=== PATIENT | male | born 1980 | race Caucasian/White ===

== ENCOUNTER 2023-03-21 10:15 | Outpatient (OUT) | payer OTHER, SELFPAY ==
[2023-03-21 11:09] LABS: Alanine Aminotransferase 49 U/L (16-63); Albumin Level 3.8 g/dL (3.4-5.0); Alkaline Phosphatase 97 U/L (46-116); Aspartate Amino Transferase 14 U/L (15-37); BUN Creatinine Ratio 10.1; Bilirubin Total 0.3 mg/dL (0.2-1.0); Calcium 8.7 mg/dL (8.5-10.1); Carbon Dioxide 30.7 mmol/L (21.0-32.0); Chloride 105 mmol/L (98-107); Chol HDL Ratio 4.9; Cholesterol 193 mg/dL (<=200); Estimated GFR (African America >60 (>=60); Estimated GFR (Non-African Ame >60 (>=60); Free T4 1.06 ng/dL (0.76-1.46); Globulin 3.8 g/dL; Glucose 132 mg/dL (74-106); HDL Cholesterol 39 mg/dL (40-60); Potassium 3.7 mmol/L (3.5-5.1); Sodium 142 mmol/L (136-145); Thyroid Stimulating Hormone 1.492 uIU/mL (0.358-3.740); Total Protein 7.6 g/dL (6.4-8.2); Triglycerides 400 mg/dL (<=150)
[2023-03-21 12:03] LABS: LDL Cholesterol Direct 74 mg/dL
== END 2023-03-21 10:16 ==
LOC: LAB 10:21
PROVIDERS: PCP Family Medicine; Visit Provider Family Medicine
DX: I10 Essential (primary) hypertension (principal); E03.9 Hypothyroidism, unspecified; E78.2 Mixed hyperlipidemia
CPT/HCPCS: 36415; 80053; 80061; 83721; 84439; 84443

== ENCOUNTER 2024-01-10 11:53 | Outpatient (OUT) | payer OTHER, SELFPAY ==
[2024-01-10 13:33] LABS: Alanine Aminotransferase 40 U/L (16-63); Albumin Globulin Ratio 1.1; Albumin Level 3.6 g/dL (3.4-5.0); Alkaline Phosphatase 104 U/L (46-116); Anion Gap 11.3; Aspartate Amino Transferase 19 U/L (15-37); BUN Creatinine Ratio 10.3; Bilirubin Total 0.4 mg/dL (0.2-1.0); Calcium 8.9 mg/dL (8.5-10.1); Carbon Dioxide 32.4 mmol/L (21.0-32.0); Chloride 103 mmol/L (98-107); Chol HDL Ratio 4.3; Cholesterol 184 mg/dL (<=200); Estimated GFR (African America >60 (>=60); Estimated GFR (Non-African Ame >60 (>=60); Globulin 3.4 g/dL; Glucose 135 mg/dL (74-106); HDL Cholesterol 43 mg/dL (40-60); Potassium 3.7 mmol/L (3.5-5.1); Sodium 143 mmol/L (136-145); Thyroid Stimulating Hormone 6.635 uIU/mL (0.358-3.740); Triglycerides 321 mg/dL (<=150); VLDL CHOLESTEROL 64.2 mg/dL
[2024-01-10 14:55] LABS: Free T4 0.94 ng/dL (0.76-1.46)
== END 2024-01-10 11:54 | disposition home or self-care (01) ==
LOC: LAB 11:55
PROVIDERS: PCP Family Medicine; Visit Provider Family Medicine
DX: E78.2 Mixed hyperlipidemia (principal); E03.9 Hypothyroidism, unspecified; I10 Essential (primary) hypertension
CPT/HCPCS: 36415; 80053; 80061; 84439; 84443

== ENCOUNTER 2024-03-19 11:13 | Outpatient (OUT) | payer OTHER, SELFPAY ==
--- NOTE | 2024-03-19 11:20 | XR_ITS ---
The [address] [address] Patient Name: AFUA BHAGAT MRN: [id number] date: 1980 Sex: M Assigned Patient Location: RAD Current Patient Location: RAD Accession/Order Number: [id number] Exam Date: 03/19/2024 11:24 Report Date: 03/19/2024 11:48 At the request of: SANTANA GANNON Procedure: XR ankle LT min 3V PROCEDURE: XR ankle LT min 3V COMPARISON: None. HISTORY: Left Ankle Pain M25.572 FINDINGS: BONES:No fracture, acute abnormality, or significant arthropathy. SOFT TISSUES:Bimalleolar soft tissue swelling more significant in the medial ankle EFFUSION:None visible. OTHER: Negative. XR/XR ankle LT min 3V IMPRESSION: Soft tissue swelling, no acute fracture Electronically authenticated by: DANGELO SALDIVAR Date: 03/19/2024 11:48
== END 2024-03-19 11:14 | disposition home or self-care (01) ==
LOC: RAD 11:15
PROVIDERS: PCP Nurse Practitioner; Visit Provider Nurse Practitioner
DX: M25.572 Pain in left ankle and joints of left foot (principal); M25.472 Effusion, left ankle
CPT/HCPCS: 73610

== ENCOUNTER 2024-03-20 14:57 | Outpatient (RCR) | payer OTHER, SELFPAY | END 2024-04-19 12:35 | disposition home or self-care (01) | LOC: PT 14:57 | PROVIDERS: PCP Nurse Practitioner; Visit Provider Nurse Practitioner | DX: M25.572 Pain in left ankle and joints of left foot (principal) | CPT/HCPCS: 97014; 97035; 97110; 97112; 97140; 97161 ==

== ENCOUNTER 2024-05-01 10:10 | Outpatient (OUT) | payer OTHER, SELFPAY ==
--- OUTSIDE RECORDS SUMMARY | 2024-05-01 10:13 | XMS_ITS | CCD ---
Author Organization [facility] Care Team Providers Care Advertising Copywriter Name Role Phone ESTHER, DR ARTIS Admitting Unavailable MISAnna, DR ARTIS Attending Unavailable MISC, DR ARTIS Consulting Unavailable Fernando Saab Unavailable DO Daphne Drake Primary Care Provider MD Patrick Morgan Attending Provider Patrick Morgan Unavailable Patrick Morgan Attending Unavailable Patrick Morgan Admitting Unavailable Daphne Drake Primary Care Unavailable JOSIE VILLELA Attending Unavailable Unavailable Primary Care Provider Unavailabl e Medications Current Medications Medication Drug Class(es) Dates Sig (Normalized) Sig (Original) amLODIPine 5 mg oral tablet (7 sources) Dihydropyridine Calcium Channel Jarvis Start: 09-29-2023 take 5 mg by mouth once daily Amlodipine Active 5 MG PO Daily September 29, 2023 12:00am amLODIPine (Norv asc) 2.5 MG tablet Take by mouth Daily. 0 Active Desoximetasone (3 sources) Corticosteroid Desoximetasone ( TOPICORT EX) Topicort 0 Active ketoconazole 20 mg/ml topical cream (7 sources) Azole Antifungal Start: 11-16-2023 ketoconazole (NIZOral) 2 % shampoo Indications: Other seborrheic dermatitis Lather on scalp and face 2-3 times weekly, leave on 5-10 min before rinsing 118 mL 11 11/16/2023 Active Start: 11-16-2023 ketoconazole ( NIZOral) 2 % cream Indications: Other seborrheic dermatitis Apply to affected areas on face qd 60 g 11 11/16/2023 Active Start: 03-17-2022 End: 11-16-2023 ketoconazole (NIZOral) 2 % c ream 1 application. 0 03/17/2022 11/16/2023 Discontinued (Reorder) lansoprazole 30 mg delayed release oral capsule (4 sources) Proton Pump Inhibitor Start: 09-29-2023 take 30 mg by mouth twice daily Lansoprazole Active 30 MG PO Twice daily September 29, 2023 12:00am Lansoprazole 30 MG 1 capsule before a meal Oral 1-2 times a day for 90 days Active levothyroxine sodium 0.1 mg oral tablet (7 sources) l-Thyroxine Start: 09-29-2023 take 100 ug by mouth once daily Levothyroxine Active 100 MCG PO Daily September 29, 2023 12:00am LEVOTHYROXINE SO DIUM PO Levothyroxine Sodium 0 Active Levothyroxine So dium 100 MCG Oral for 90 Days Active loratadine 10 mg oral tablet (4 sources) Start: 09-29-2023 take 10 mg by mouth at bedtime Loratadine Active 10 MG PO Bedtime September 29, 2023 12:00am Loratadine 10 MG Oral for 90 Days Active 24 hr metoprolol succinate 25 mg extended release oral tablet (7 sources) beta-Adrenergic Jarvis Start: 09-29-2023 take 25 mg by mouth once daily Metoprolol Succinate Active 25 MG PO Daily September 29, 2023 12:00am take 1 tablet by hubert th every twenty-four hours metoprolol succinate XL (Toprol-XL) 25 M G 24 hr tablet Take by mouth. Do not crush or chew. 0 Active montelukast 10 mg oral tablet (4 sources) Leukotriene Receptor Antagonist Start: 09-29-2023 take 10 mg by mouth at bedtime Montelukast Active 10 MG PO Bedtime September 29, 2023 12:00am rosuvastatin calcium 40 mg oral tablet (7 sources) HMG-CoA Reductase Inhibitor Start: 09-29-2023 take 40 mg by mouth at bedtime Rosuvastatin Active 40 MG PO Bedtime September 29, 2023 12:00am ROSUVASTATIN MERCEDES CIUM PO Rosuvastatin Calcium 0 Active Problems Active Problems Problem Classification Problem Date Documented Da te Episodic/Chronic Disorders of lipid metabolism (1 source) Mixed hyperlipidemia; Translations: [MIXED HYPERLIPIDEMIA] Onset: 2 Chronic Esophageal disorders (5 sources) Gastroesophageal reflux disease; Translations: [Gastro-esophageal reflux disease without esophagitis] Chronic Essential hypertension (1 source) Essential (primary) hypertension; Translations: [ESSENTIAL PRIMARY HYPERTENSION] Onset: 2 Chronic Hemorrhoids (1 source) Unspecified hemorrhoids Episodic Other and unspecified benign neoplasm (1 source) Benign neoplasm of colon, unspecified Episodic Other gastrointestinal disorders (2 sources) Diarrhea, unspecified Episodic Other inflammatory condition of skin (2 sources) Seborrheic dermatitis; Translations: [Other seborrheic dermatitis] 11-16-2023 Episodic Other skin disorders (2 sources) Eruption; Translations: [Rash and other nonspecific skin eruption] 11-16-2023 Episodic Other skin disorders (2 sources) Senile hemangioma of lip; Translations: [Other skin changes] 11-16-2023 Episodic Thyroid disorders (4 sources) Hypothyroidism, unspecified; Translations: [HYPOTHYROIDISM UNSPECIFIED] Onset: 2 Chronic Unclassified (1 source) Diarrhea, unspecified; Translations: [Diarrhea, unspecified] Onset: 3 Past or Other Problems Problem Classification Problem Date Documented Da te Episodic/Chronic Other non-epithelial cancer of skin (3 sources) Basal cell carcinoma of nose; Translations: [Basal cell carcinoma of skin of nose] Onset: 03-15-2023 03-15-2023 Episodic Results Test Name Value Interpretation Reference Range Facil eleanory Clive 09-29-2023 L Specimen: [id number] Received: 09/29/23 Status: SHAYY Catalan Num: [id number] Spec Type: Surgical Subm Dr: Patrick Morgan MD Tissues: A Colon Biopsy (RANDOM COLON BX) B Colon Biopsy (DESC POLYP) Procedures: HE/4, Gross/Micro L4/2 Age/ Patient Sex Location Account Attending Physician Jan Ferreira /M [id number] Patrick Morgan MD SPEC NUM: [id number] RECD: 09/29/23 STATUS: SHAYY CATALAN NUM: [id number] JOANNA: 09/29/23- [facility] DR: Patrick Morgan MD ENTERED: 09/29/[address] [facility] [address]: JOANIE TYPE: Surgical DEPT: S ORDERED: HE/4, Gross/Micro L4/2 ORDERED: HE/4, Gross/Micro L4/2 Pathological Diagnosis A. Colon, Random Biopsies: Mild Increase In Intra-epithelial Lymphocytes. Cannot Rule Out Evolving/ Resolving Microscopic (lymphocytic) Colitis. B. Polyp, Descending Colon, Biopsy: Serrated Adenoma. - Negative For High Grade Dysplasia And Malignancy. Clinical Information Diarrhea, rule out microscopic colitis Gross Description A. Received in formalin labeled with the patient's name, date of and random colon biopsy are three smith tissues averaging 0.4 x 0.2 x 0.2 cm. Entirely submitted in one cassette labeled A1. B. Received in formalin labeled with the patient's name, date of and descending polyp are three smith tissues ranging from 0.2 cm to 0.3 cm. Entirely submitted in one cassette labeled B1. Specimen: [id number] Received: 09/29/23 Status: SHAYY Catalan Num: [id number] Spec Type: Surgical Subm Dr: Patrick Morgan MD Tissues: A Colon Biopsy (RANDOM COLON BX) B Colon Biopsy (DESC POLYP) Procedures: HE/Latonya, Gross/Micro L4/2 Patient: Jan Ferreira [id number] (Continued) Specimen: [id number] Received: 09/29/23 (Continued) Signed (signature on file) Heladio Mulligan MD 10/03/23 2237 Specimen: [id number] Received: 09/29/23 Status: SHAYY Catalan Num: [id number] Spec Type: Surgical Subm Dr: Patrick Morgan MD Tissues: A Colon Biopsy (RANDOM COLON BX) B Colon Biopsy (DESC POLYP) Procedures: HE/4, Gross/Micro L4/2 Patient: Jan Ferreira [id number] (Continued) Specimen: [id number] Received: 09/29/23 (Continued) Microscopic Description A. Two H E slides reviewed. The microscopic examination confirms the diagnosis. B. Two H E slides reviewed. The microscopic examination confirms the diagnosis. CPT Codes 33369k3 Specimen: [id number] Received: 09/29/23-3 Status: SHAYY Catalan Num: [id number] Spec Type: Surgical Subm Dr: Patrick Morgan MD Tissues: A Colon Biopsy (RANDOM COLON BX) B Colon Biopsy (DESC POLYP) Procedures: HE/4, Gross/Micro L4/2 Patient: Jan Ferreira [id number] (Continued) Signed (signature on file) Heladio Mulligan MD 10/03/232236 Normal [facility] FREE T4on 09-06-2022 Free T4 [Mass/Vol] 1.17 ng/dL Normal 0.76-1.46 [facility] Comment on above: Performed By: #### F T4 #### [facility] [address] [place] [address] Dr. Marco A Hidalgo LIPID PROFILEon 09-06-2022 CHOL-HDL RATIO NORM SEE BELOW Normal [facility] Comment on above: Result Comment: 3.3 - 4.4 LOW RISK 4.4 - 7.1 AVERAGE RISK 7.1 - 11.0 MODERATE RISK >11.0 HIGH RISK Performed By: #### T SH, LIPID, CMP #### [facility] [address] [address] [address] Marco A Hidalgo Cholesterol [Mass/Vol] 171 mg/dL Normal <=200 [facility] Comment on above: Performed By: #### T SH, LIPID, CMP #### [facility] [address] [address] [address] Marco A Hidalgo Cholesterol in HDL [Mass/Vol] 48 mg/dL Normal 40-60 [facility] Comment on above: Performed By: #### T CIRA, LIPID, CMP #### [facility] [address] [address] [address] Marco A Hidalgo Cholesterol in LDL [Mass/Vol] 96.2 mg/dL Normal [facility] Comment on above: Performed By: #### T CIRA, LIPID, CMP #### [facility] [address] [address] [address] Marco A Hidalgo Cholesterol.total/C holesterol in HDL [Mass ratio] 3.6 {ratio} Normal [facility] Comment on above: Performed By: #### T CIRA, LIPID, CMP #### [facility] [address] [place] [address] Dr. Marco A Hidalgo HDL NORMAL > or = 60 mg/dl - LOW CARDIOVASCULAR RISK <40 mg/dl - HIGH CARDIOVASCULAR RISK Normal [facility] Comment on above: Performed By: #### T CIRA, LIPID, CMP #### [facility] [address] [place] [address] Dr. Marco A Hidalgo LDL CALC NORMAL SEE BELOW Normal [facility] Comment on above: Result Comment: <100 mg/dl OPTIMAL 100 - 129 mg/dl NEAR OR ABOVE OPTIMAL 130 - 159 mg/dl BORDERLINE HIGH 160 - 189 mg/dl HIGH >190 mg/dl VERY HIGH Performed By: #### T SH, LIPID, CMP #### [facility] [address] [address] [address] Marco A Hidalgo Triglyceride [Mass/Vol] 134 mg/dL Normal <=150 [facility] Comment on above: Performed By: #### T SH, LIPID, CMP #### [facility] [address] [address] [address] Marco A Hidalgo VLDL CALC 26.8 mg/dL Normal [facility] Comment on above: Performed By: #### T SH, LIPID, CMP #### [facility] [address] [address] [address] Marco A Hidalgo PROF 14(COMP METB)on 022 Albumin [Mass/Vol] 4.1 g/dL Normal 3.4-5.0 [facility] Comment on above: Performed By: #### T CIRA, LIPID, CMP #### [facility] [address] [place] [address] Dr. Marco A Hidalgo Albumin/Globulin [Mass ratio] 1.1 {ratio} Normal [facility] Comment on above: Performed By: #### T CIRA, LIPID, CMP #### [facility] [address] [place] [address] Dr. Marco A Hidalgo ALP [Catalytic activity/Vol] 89 U/L Normal 46-116 [facility] Comment on above: Performed By: #### T SH, LIPID, CMP #### [facility] [address] [place] [address] Dr. Marco A Hidalgo ALT [Catalytic activity/Vol] 36 U/L Normal 16-63 [facility] Comment on above: Performed By: #### T CIRA, LIPID, CMP #### [facility] [address] [address] [address] Marco A Hidalgo Anion gap [Moles/Vol] 10.5 mmol/L Normal [facility] Comment on above: Performed By: #### T SH, LIPID, CMP #### [facility] [address] [place] [address] Dr. Marco A Hidalgo AST [Catalytic activity/Vol] 16 U/L Normal 15-37 [facility] Comment on above: Performed By: #### T SH, LIPID, CMP #### [facility] [address] [place] [address] Dr. Marco A Hidalgo Bilirubin [Mass/Vol] 0.4 mg/dL Normal 0.2-1.0 [facility] Comment on above: Performed By: #### T SH, LIPID, CMP #### [facility] [address] [place] [address] Dr. Marco A Hidalgo Calcium [Mass/Vol] 8.8 mg/dL Normal 8.5-10.1 [facility] Comment on above: Performed By: #### T SH, LIPID, CMP #### [facility] [address] [place] [address] Dr. Marco A Hidalgo Chloride [Moles/Vol] 103 mmol/L Normal 98-107 [facility] Comment on above: Performed By: #### T SH, LIPID, CMP #### [facility] [address] [place] [address] Dr. Marco A Hidalgo CO2 [Moles/Vol] 31.4 mmol/L Normal 21.0-32.0 [facility] Comment on above: Performed By: #### T SH, LIPID, CMP #### [facility] [address] [place] [address] Dr. Marco A Hidalgo Creatinine [Mass/Vol] 0.83 mg/dL Normal 0.70-1.30 [facility] Comment on above: Performed By: #### T SH, LIPID, CMP #### [facility] [address] [place] [address] Dr. Marco A Hidalgo EGFR-AF TONGAN >60 Normal >=60 [facility] Comment on above: Performed By: #### T SH, LIPID, CMP #### [facility] [address] [place] [address] Dr. Marco A Hidalgo EGFR-NON AF TONGAN >60 Normal >=60 [facility] Comment on above: Performed By: #### T SH, LIPID, CMP #### [facility] [address] [place] [address] Dr. Marco A Hidalgo Globulin (S) [Mass/Vol] 3.6 g/dL Normal [facility] Comment on above: Performed By: #### T SH, LIPID, CMP #### [facility] [address] [place] [address] Dr. Marco A Hidalgo Glucose [Mass/Vol] 111 mg/dL Critically high 74-106 [facility] Comment on above: Performed By: #### T CIRA LIPID, CMP #### [facility] [address] [address] [address] Marco A Hidalgo Potassium [Moles/Vol] 3.9 mmol/L Normal 3.5-5.1 [facility] Comment on above: Performed By: #### T CIRA LIPID, CMP #### [facility] [address] [place] [address] Dr. Marco A Hidalgo Protein [Mass/Vol] 7.7 g/dL Normal 6.4-8.2 [facility] Comment on above: Performed By: #### T CIRA LIPID, CMP #### [facility] [address] [place] [address] Dr. Marco A Hidalgo Sodium [Moles/Vol] 141 mmol/L Normal 136-145 [facility] Comment on above: Performed By: #### T CIRA LIPID, CMP #### [facility] [address] [place] [address] Dr. Marco A Hidalgo Urea nitrogen [Mass/Vol] 7.0 mg/dL Normal 7.0-18.0 [facility] Comment on above: Performed By: #### T CIRA LIPID, CMP #### [facility] [address] [place] [address] Dr. Marco A Hidalgo Urea nitrogen/Creatinine [Mass ratio] 8.4 mg/mg Normal [facility] Comment on above: Performed By: #### T CIRA LIPID, CMP #### [facility] [address] [place] [address] Dr. Marco A Hidalgo TSHon 09-06-2022 TSH 2.730 uIU/mL Normal 0.358-3.740 [facility] Comment on above: Performed By: #### T CIRA LIPID, CMP #### [facility] [address] [place] [address] Dr. Marco A Hidalgo Vital Signs Date Time Vital Sign Value Performing Clinician Facility 10-31-2023 09:20-0500 Body height 182.88 cm Fernando Saab Other [employer] Other 10-31-2023 09:20-0500 Body mass index (BMI) [Ratio] 26.31 kg/m2 Fernando Scovanner Other [employer] Other 10-31-2023 09:20-0500 Body weight 88 kg Fernando Saab Other [employer] Other 10-31-2023 09:20-0500 Diastolic blood pressure 77 mm[Hg] Fernando Scovanner Other [employer] Other 10-31-2023 09:20-0500 Systolic blood pressure 112 mm[Hg] Fernando Garcíaovanner Other [facility] Other 09-29-2023 12:00-0500 Diastolic blood pressure 91 mm[Hg] DO Daphne Rumschlag Work Phone: [facility] 09-29-2023 12:00-0500 Heart rate 90 /min DO Daphne Rumschlag Work Phone: [facility] 09-29-2023 12:00-0500 Respiratory rate 18 /min DO Daphne Rumschlag Work Phone: [facility] 09-29-2023 12:00-0500 SaO2% (BldA) [Mass fraction] 98 % DO Daphne Rumschlag Work Phone: [facility] 09-29-2023 12:00-0500 Systolic blood pressure 133 mm[Hg] DO Daphne Rumschlag Work Phone: [facility] 09-29-2023 10:20-0500 Body height 182.88 cm DO Daphne Rumschlag Work Phone: [facility] 09-29-2023 10:20-0500 Body weight 86.18 kg DO Daphne Drake Work Phone: [facility] 08-23-2023 13:20-0500 Body height 182.88 cm Fernando Saab Other [employer] Other 08-23-2023 13:20-0500 Body mass index (BMI) [Ratio] 21.21 kg/m2 Fernando Saab Other [employer] Other 08-23-2023 13:20-0500 Body weight 70.94 kg Fernando Saab Other [employer] Other 08-23-2023 13:20-0500 Diastolic blood pressure 75 mm[Hg] Fernando Saab Other [employer] Other 08-23-2023 13:20-0500 Systolic blood pressure 132 mm[Hg] Fernando Saab Other [employer] Other Encounters Encounter Date Encounter Type Care Provider Facility Start: 11-16-2023 End: 11-16-2023 ambulatory JOSIE VILLELA Not Available Start: 11-16-2023 End: 11-16-2023 Office outpatient visit 15 minutes Josie Villela MD Work Phone: [facility] Comment on above: Other seborrheic huan matitis (Primary Dx); Rash and other nonspecific skin eruption; Venous yoo of lip Start: 11-16-2023 Bamboo flowsheet Josie valera MD Work Phone: [facility] Start: 11-16-2023 Bamboo flowsheet Josie valera MD Work Phone: [facility] Start: 10-31-2023 End: 10-31-2023 ambulatory Fernando Saab Other [employer] Other Start: 10-31-2023 Office outpatient visit 15 minutes Fernando Saab [facility] Start: 10-03-2023 End: 10-03-2023 ambulatory Patrick Morgan Other [employer] Other Start: 10-03-2023 Telephone encounter Patrick NIÑO G Gastro[facility] Start: 09-29-2023 End: 09-29-2023 ambulatory Patrick Morgan Facility:[facility] Start: 09-29-2023 End: 09-29-2023 Admission to same day surgery center DO Daphne Rumschlag Work Phone: [facility] Work Phone: Start: 09-29-2023 End: 09-29-2023 ambulatory DO Daphne Rumschlag Work Phone: [facility] Work Phone: Start: 08-23-2023 End: 08-23-2023 ambulatory Fernando Saab Other [facility] Other Start: 08-23-2023 Office outpatient ne w 30 minutes Fernando Saab [facility] Start: 09-06-2022 End: 09-07-[address] DOCTOR SANTANA Facility:[facility]1 Procedures Date Procedure Procedure Detail Performing Clinician Start: 09-29-2023 End: 09-29-2023 Colonoscopy DO Daphne Rumschlag Work Phone: Plan of Treatment Date Care Activity Detail Author Start: 09-29-2033 Screening for malign ant neoplasm of colon [facility] Start: 11-18-2024 End: 11-18-2024 Patient encounter procedure 11/18/2024 1:45 PM EST Office Visit [facility] [address] [place] [address] Josie Villela MD [address] [place] [address] [facility] Start: 03-18-2024 End: 03-18-2024 Patient encounter procedure 03/18/2024 1:00 PM EDT Office Visit [facility] [address] [place] [address] Josie Villela MD [address] [place] [address] [facility] Start: 11-16-2023 End: 11-16-2023 Patient encounter procedure 11/16/2023 2:45 PM EST Office Visit [facility] [address] [place] [address] Josie Villela MD [address] [place], [place] [id number] Arrived [facility] Comment on above: Arrived Start: 09-29-2023 [facility] Start: 06-09-2023 Influenza vaccination Influenza Vacc ine (#1) [facility] Start: 1980 Screening for malign ant neoplasm of colon [facility] Patient Education Colon polyps Hemorrhoids (DC) [facility] Work Phone: Payers Date Payer Category Payer Self-pay [id number] 2022 Medicaid [id number] 2022 Medicaid [employer] [id number] 2022-Present [address] [place] [address] [id number] 1980 Unknown [id number] 1978 Unknown [id number] 1959 Unknown Unknown [id number] Social History Date Type Detail Facility Start: 03-16-2023 End: 11-16-2023 Sex Assigned At [employer] Other Start: 03-16-2023 End: 09-29-2023 Tobacco smoking status NHIS Never smoked tobacco (finding) [facility] Start: 1980 Sex Assigned At Male [facility] Start: 03-16-2023 Tobacco use and exposure Smokeless tobacco non-user [facility] Start: 03-16-2023 End: 11-16-2023 History of Social function [facility] Start: 03-09-2023 Gender identity Identifies as male gender (finding) [facility] Start: 03-09-2023 Sexual orientation Heterosexual (finding) [facility] Goals Date Patient Goal Desired Activity /State History of Present illness Narrative 11-16-2023 Josie Villela MD - 11/16/2023 2:45 PM EST Note Date & Type Note Facility 11-16-2023 History of Presen t illness Narrative Lesion(s) Location: left arm Duration: months Quality: itchy Associated symptoms: red Treatments: ketoconazole cream Lesion # 2: Location: left lower lip, right chin Duration: months Quality: denies pain, denies itch Associated symptoms: darkening Treatments: none Rash Location: left lower leg Duration: couple weeks Quality: itchy Associated symptoms: red, scaly Current treatments: HC cream Follow up Diagnosis: Seborrheic Dermatitis Location: face Last visit: 6 months ago Symptoms: red, scaly, itchy Status: no change Treatments tried and failed: HC cream Current treatment: ketoconazole shampoo every day, ketoconazole cream qd Established patient All pertinent medical history, medications, and allergies were reviewed. General Exam: alert , oriented to person, place, and time , normal affect, well appearing Unaccompanied A focused exam completed based on patient reported problems, see below: 1. Rash and other nonspecific skin eruption Left Ankle - Anterior [place] patches. Resolving at this time. Follow up if condition worsens or fails to resolve. Can continue to use OTC hydrocortisone bid prn until clear. 2. Venous yoo of lip Left Lower [place] Lip Red papule No treatment necessary. Recommend seeing Dr. Colón for laser if desires removal. 3. Other seborrheic dermatitis Mid Forehead Erythema and scale. Stable Discussed that seborrheic dermatitis is a chronic condition that can be controlled but not cured. Continue ketoconazole shampoo 2-3 times weekly, leave on 5-10 min, then rinse and ketoconazole cream every day. Instructed to call if condition worsens despite treatment. ketoconazole (NIZOral) 2 % shampoo - Mid Forehead Lather on scalp and face 2-3 times weekly, leave on 5-10 min before rinsing Related Medications ketoconazole (NIZOral) 2 % cream Apply to affected areas on face qd Next Visit: 1 year documented in this encounter [facility] Evaluation note 10-31-2023 Note Date & Type Note Facility 10-31-2023 Evaluation note Encounter Date Diagnosis Assessment Notes Oct, Hemorrhoids (ICD-10 - K64.9) Oct, Serrated adenoma of colon (ICD-10 - D12.6) Repeat colonoscopy in 3 yrs Oct, Diarrhea (ICD-10 - R19.7) Oct, GERD (gastroesophag eal reflux disease) (ICD-10 - K21.9) Continue lansoprazole 30 mg twice a day Rto 1 yr [employer] Other Procedure note 09-29-2023 Note Date & Type Note Facility 09-29-2023 Procedure note [facility] Evaluation note 08-23-2023 Note Date & Type Note Facility 08-23-2023 Evaluation note Encounter Date Diagnosis Assessment Notes Aug, GERD (gastroesoph ageal reflux disease) (ICD-10 - K21.9) Patient reports that he wakes in the morning chocking on vomit Patient is currently on prevised 30 mg Patient reports that he will have improvement if his diet is good Patient reports that his PCP placed him on the Mediterranean diet and exercise that he is not following Aug, Diarrhea (ICD-10 - R19.7) Patient reports that he has a very poor diet of pop and fast food Patient reports that he has had some stool that was green Patient reports that he has intermittent diarrhea and constipation Patient reports that he has bowel movements according to his meals Patient is advised to start OTC fiber and probiotics and increas water intake [facility] [employer] Other Evaluation note Note Date & Type Note Facility Evaluation note No assessment information availa vipul [facility] Work Phone: Evaluation note Note Date & Type Note Facility Evaluation note No Information [facility] [employer] Other Evaluation note Note Date & Type Note Facility Evaluation note Diagnosis Other seborrheic dermatitis- Primary Rash and other nonspecific skin eruption Venous yoo of lip documented in this encounter [facility] History and physical note Note Date & Type Note Facility History and physical note Note Date/Time September 29, 2023 11:27am [facility] [address] [place] [address] Gastroenterology H&P Signed Patient: Jan Ferreira MR#: [id number] : 1980 Acct:[id number] Age/Sex: 42 / M Adm Date: 3 Loc: Room: Type: [facility] Attending Dr: Patrick Morgan MD Copies to: DO Patrick May MD~ Date of Service: 09/29/2023 HISTORY & PHYSICAL: Patient's history with special attention to the cardiovascular, pulmonary systems and the current problem was reviewed with the patient immediately prior to the procedure. Present medications and doses reviewed in the EMR. Allergies and pertinent laboratory tests were also reviewedat this time in the EMR. The physical examination, as below, was then performed. Indication, assessment and HPI: 42-year-old male presents for colonoscopy to evaluate change in bowel habits with diarrhea. Family history of GI malignancy? No PHYSICAL EXAMINATION Mouth and Pharynx : Moist mucus membranes, normal dentition Cardiac: Regular rate, regular rhythm Pulmonary: Clear to auscultation bilaterally, no wheezing Neurological: Alert and oriented x3, no focal deficits noted Abdomen: Abdomen soft, non-tender REVIEW OF SYSTEMS Constitutional: Denies malaise, fevers Cardiovascular: Denies chest pain, palpitations Respiratory: Denies shortness of breath, wheezing Gastrointestinal: Per HPI Genitourinary: Denies dysuria, polyuria Musculoskeletal: Denies joint swelling, joint stiffness Neurological: Denies numbness, tingling Integumentary: Denies rashes, skin lesions Endocrine: Denies fatigue, weight loss Written informed consent obtained from the patient. Risks (including but not limited to perforation, infection, bloating, bleeding, need for emergent surgery and loss of life), benefits and alternatives explained and questions answered. The patient verbalized understanding. Based on history patient is an appropriate candidate for the procedure. Patrick Morgan MD Documented By: Patrick Morgan MD 09/29/231126 Signed By: <Electronically signed by Patrick Morgan MD> 09/29/23 1127 [facility] Work Phone: History general Narrative - Reported Note Date & Type Note Facility History general Narrative - Reported Type Medical History high blood pressure Medical History high cholesterol Medical History seasonal allergies Medical History thyroid disease Surgical History MOHS X2 [employer] Other Hospital Discharge instructions Note Date & Type Note Facility Hospital Discharge instructions Additional Instructions DISCHARGE INSTRUCTIONS FOR COLONOSCOPY WHAT TO EXPECT: - You may feel full, gassy or cramping after your procedure. In some cases, this may be from a few hours to a day. Walking may help relieve the discomfort. - If you have polyp(s) removed you may note some minor bloody discharge after your first bowel movements. - You should begin to recover from anesthesia within 1 hour of the procedure, however may feel groggy for the next 24 hours. DO's AND DON'Ts: - Call your doctor right away if you have a hard abdomen, severe pain, are passing lots of bright red blood or clots. - Call your doctor if you develop any rashes, hives or difficulty breathing. - Let your doctor know if you have not had a bowel movement by 3 days after your procedure. - If you take 81 mg aspirin for your heart it is safe to resume this medication. - If you take other blood thinner medications your doctor will instruct you when these can safely be resumed. - Do NOT drive for 24 hours. - Do NOT operate machinery such as power tools, lawn mowers, snow blowers, sewing machines, etc. for 24 hours. - Avoid alcoholic beverages and drugs for allergies, nerves, or sleep. - Do NOT stay alone. Do NOT leave your child unattended. - Do NOT make important personal or business decisions or sign any legal documents. - Eat solid foods and drink liquids in smaller amounts than usual until normal appetite returns. If you should experience an upset stomach, liquids high in sugar content (soda, Gareth-Aid, non-acid juices) are recommended. - You can resume normal activities tomorrow. FOLLOW UP & RECOMMENDATIONS: -The GI office will schedule you a follow-up appointment. -Notify the doctor if you have any problems. -Repeat colonoscopy in 5 years. -Follow up with PCP. -Office number [phone]. [facility] Work Phone: Summary Purpose Family History Relationship Condition Age at Onset Recorded Date/T bubba father Malignant neoplasm of lung Unknown grandparent Malignant neoplasm of lung Unknown Not Specified Dementia Unknown grandparent Cerebrovascular accident (CVA) Unknown Advance Directives Advance Directive Response Recorded Date/ Time Advance Directives No May 20, 2020 4:17pm Chief Complaint and Reason for Visit Chief Complaint diahrrea Additional Source Comments (unrecognized sect ion and content) No Status Records FoundNo Status Records FoundNo Status Records Found INFORMATION SOURCE (unrecogn ized section and content) DATE CREATED AUTHOR 10/05/2022 [facility] DATE CREATED AUTHOR AUTHOR'S ORGANIZ ATION 10/14/2023 [facility] DATE CREATED AUTHOR AUTHOR'S ORGANIZ ATION 11/17/2023 [facility] EPIC REASON FOR VISIT (unrecogniz ed section and content) Reason Comments Suspicious Skin Lesion Rash Care Teams (unrecognized sec tion and content) Team Status: Active Member Role Status Dates Daphne Drake DO Primary Care Provider Active Team Status: Inactive Member Role Status Dates Daphne Drake DO Primary Care Provider Active Patrick Morgan MD Attending Provider Active FOR RECORDS PERTAINING TO PATIENTS WHO ARE OR HAVE BEEN ENROLLED IN A CHEMICAL DEPENDENCY/SUBSTANCEABUSE PROGRAM, SOME INFORMATION MAY BE OMITTED. This clinical summary was aggregated from multiple sources. Caution should be exercised in using it in the provision of clinical care. This summary normalizes information from multiple sources, and as a consequence, information in this document may materially change the coding, format and clinical context of patient data. In addition, data may be omitted in some cases. CLINICAL DECISIONS SHOULD BE BASED ON THE PRIMARY CLINICAL RECORDS. [facility] [employer] [facility]. provides no warranty or guarantee of the accuracy or completeness of information in this document.
[2024-05-01 10:52] LABS: Glucometer 139 mg/dL (74-106)
[2024-05-01 11:23] LABS: Basophils Percent Auto 0.4 % (0.2-2.0); Eosinophils Absolute Auto 0.1 10^3/uL (0.0-0.7); Eosinophils Percent Auto 1.4 % (0.9-7.0); Hematocrit 42.4 % (42.0-54.0); Hemoglobin 13.9 g/dL (14.0-18.0); Immature Granulocytes Abs Auto 0.02 10^3/uL (0.00-0.03); Immature Granulocytes Pct Auto 0.3 % (0.0-0.5); Lymphocytes Absolute Auto 1.8 10^3/uL (1.2-3.8); Lymphocytes Percent Auto 24.7 % (20.5-60.0); Mean Corpuscular HGB Conc 32.8 g/dL (29.9-35.2); Mean Corpuscular Hemoglobin 27.3 pg (25.9-34.0); Mean Corpuscular Volume 83.1 fL (80.0-94.0); Mean Platelet Volume 8.8 fL (9.5-13.5); Monocytes Absolute Auto 0.5 10^3/uL (0.3-0.8); Monocytes Percent Auto 6.6 % (1.7-12.0); Neutrophils Absolute Auto 4.7 10^3/uL (1.4-6.5); Neutrophils Percent Auto 66.6 % (43.0-75.0); Platelet Count 187 10^3/uL (150-450); Red Cell Distribution Width 12.6 % (11.0-15.0); White Blood Count 7.1 10^3/uL (4.0-11.0)
[2024-05-01 11:24] LABS: Alanine Aminotransferase 44 U/L (16-63); Albumin Level 3.6 g/dL (3.4-5.0); Alkaline Phosphatase 108 U/L (46-116); Anion Gap 10.7; Aspartate Amino Transferase 18 U/L (15-37); BUN Creatinine Ratio 8.8; Bilirubin Total 0.6 mg/dL (0.2-1.0); Calcium 8.8 mg/dL (8.5-10.1); Carbon Dioxide 30.2 mmol/L (21.0-32.0); Chloride 104 mmol/L (98-107); Chol HDL Ratio 4.6; Cholesterol 178 mg/dL (<=200); Estimated GFR (African America >60 (>=60); Estimated GFR (Non-African Ame >60 (>=60); Globulin 3.5 g/dL; Glucose 133 mg/dL (74-106); HDL Cholesterol 39 mg/dL (40-60); Potassium 3.9 mmol/L (3.5-5.1); Sodium 141 mmol/L (136-145); TSH W/ REFLEX FT4 1.342 uIU/mL (0.358-3.740); Total Protein 7.1 g/dL (6.4-8.2); Triglycerides 191 mg/dL (<=150); VLDL CHOLESTEROL 38.2 mg/dL
[2024-05-01 11:29] LABS: Estimated Average Glucose 128 mg/dL; Glycohemoglobin A1C 6.1 % (4.5-6.2)
== END 2024-05-01 10:11 | disposition home or self-care (01) ==
LOC: LAB 10:10
PROVIDERS: PCP Nurse Practitioner; Visit Provider Nurse Practitioner
DX: E78.2 Mixed hyperlipidemia (principal); I10 Essential (primary) hypertension; E03.9 Hypothyroidism, unspecified; R73.09 Other abnormal glucose
CPT/HCPCS: 36415; 80053; 80061; 83036; 84443; 85025

== ENCOUNTER 2024-08-12 10:10 | Outpatient (OUT) | payer OTHER, SELFPAY ==
--- OUTSIDE RECORDS SUMMARY | 2024-08-12 10:25 | XMS_ITS | CCD ---
Author Organization [facility] InformFormerly [facility] Care Team Providers Care Missile Inspector Preflight Name Role Phone ESTHER, DR ARTIS Admitting [...] Range Facil eleanory Clive 09-29-2023 L Specimen: [id number] Received: 09/29/23 Status: SHAYY Catalan Num: [id number] Spec Type: Surgical Subm Dr: Patrick Morgan MD Tissues: A Colon Biopsy (RANDOM COLON BX) B Colon Biopsy (DESC POLYP) Procedures: HE/4, Gross/Micro L4/2 Age/ Patient Sex Location Account Attending Physician Jan Ferreira /M [id number] Patrick Morgan MD SPEC NUM: [id number] RECD: 09/29/23 STATUS: SHAYY CATALAN NUM: [id number] JOANNA: 09/29/23- [facility] DR: Patrick Morgan MD ENTERED: 09/29/[address] [facility] [address]: JOANIE TYPE: Surgical DEPT: S ORDERED: [...] submitted in one cassette labeled B1. Specimen: [id number] Received: 09/29/23 Status: SHAYY Catalan Num: [id number] Spec Type: Surgical Subm Dr: Patrick Morgan MD Tissues: A Colon Biopsy (RANDOM COLON BX) B Colon Biopsy (DESC POLYP) Procedures: HE/Latonya, Gross/Micro L4/2 Patient: Jan Ferreira [id number] (Continued) Specimen: [id number] Received: 09/29/23 (Continued) Signed (signature on file) Heladio Mulligan MD 10/03/23 2237 Specimen: [id number] Received: 09/29/23 Status: SHAYY Catalan Num: [id number] Spec Type: Surgical Subm Dr: Patrick Morgan MD Tissues: A Colon Biopsy (RANDOM COLON BX) B Colon Biopsy (DESC POLYP) Procedures: HE/4, Gross/Micro L4/2 Patient: Jan Ferreira [id number] (Continued) Specimen: [id number] Received: 09/29/23 (Continued) Microscopic Description A. Two H E slides reviewed. The microscopic examination confirms the diagnosis. B. Two H E slides reviewed. The microscopic examination confirms the diagnosis. CPT Codes 66181q5 Specimen: [id number] Received: 09/29/23-3 Status: SHAYY Catalan Num: [id number] Spec Type: Surgical Subm Dr: Patrick Morgan MD Tissues: A Colon Biopsy (RANDOM COLON BX) B Colon Biopsy (DESC POLYP) Procedures: HE/4, Gross/Micro L4/2 Patient: Jan Ferreira [id number] (Continued) Signed (signature on file) Heladio Mulligan MD 10/03/232236 Normal [facility] FREE T4on 09-06-2022 Free T4 [Mass/Vol] 1.17 ng/dL Normal 0.76-1.46 [facility] Comment on above: Performed By: #### F T4 #### [facility] [address] [place] [address] Dr. Marco A Hidalgo LIPID PROFILEon 09-06-2022 CHOL-HDL RATIO NORM SEE BELOW Normal [facility] Comment on above: Result Comment: 3.3 - 4.4 LOW RISK 4.4 - 7.1 AVERAGE RISK 7.1 - 11.0 MODERATE RISK >11.0 HIGH RISK Performed By: #### T SH, LIPID, CMP #### [facility] [address] [address] [address] Marco A Hidalgo Cholesterol [Mass/Vol] 171 mg/dL Normal <=200 [facility] Comment on above: Performed By: #### T SH, LIPID, CMP #### [facility] [address] [address] [address] Marco A Hidalgo Cholesterol in HDL [Mass/Vol] 48 mg/dL Normal 40-60 [facility] Comment on above: Performed By: #### T CIRA, LIPID, CMP #### [facility] [address] [address] [address] Marco A Hidalgo Cholesterol in LDL [Mass/Vol] 96.2 mg/dL Normal [facility] Comment on above: Performed By: #### T CIRA, LIPID, CMP #### [facility] [address] [address] [address] Marco A Hidalgo Cholesterol.total/C holesterol in HDL [Mass ratio] 3.6 {ratio} Normal [facility] Comment on above: Performed By: #### T CIRA, LIPID, CMP #### [facility] [address] [place] [address] Dr. Marco A Hidalgo HDL NORMAL > or = 60 mg/dl - LOW CARDIOVASCULAR RISK <40 mg/dl - HIGH CARDIOVASCULAR RISK Normal [facility] Comment on above: Performed By: #### T CIRA, LIPID, CMP #### [facility] [address] [place] [address] Dr. Marco A Hidalgo LDL CALC NORMAL SEE BELOW Normal [facility] Comment on above: Result Comment: <100 mg/dl OPTIMAL 100 - 129 mg/dl NEAR OR ABOVE OPTIMAL 130 - 159 mg/dl BORDERLINE HIGH 160 - 189 mg/dl HIGH >190 mg/dl VERY HIGH Performed By: #### T SH, LIPID, CMP #### [facility] [address] [address] [address] Marco A Hidalgo Triglyceride [Mass/Vol] 134 mg/dL Normal <=150 [facility] Comment on above: Performed By: #### T SH, LIPID, CMP #### [facility] [address] [address] [address] Marco A Hidalgo VLDL CALC 26.8 mg/dL Normal [facility] Comment on above: Performed By: #### T SH, LIPID, CMP #### [facility] [address] [address] [address] Marco A Hidalgo PROF 14(COMP METB)on 022 Albumin [Mass/Vol] 4.1 g/dL Normal 3.4-5.0 [facility] Comment on above: Performed By: #### T CIRA, LIPID, CMP #### [facility] [address] [place] [address] Dr. Marco A Hidalgo Albumin/Globulin [Mass ratio] 1.1 {ratio} Normal [facility] Comment on above: Performed By: #### T CIRA, LIPID, CMP #### [facility] [address] [place] [address] Dr. Marco A Hidalgo ALP [Catalytic activity/Vol] 89 U/L Normal 46-116 [facility] Comment on above: Performed By: #### T SH, LIPID, CMP #### [facility] [address] [place] [address] Dr. Marco A Hidalgo ALT [Catalytic activity/Vol] 36 U/L Normal 16-63 [facility] Comment on above: Performed By: #### T CIRA, LIPID, CMP #### [facility] [address] [address] [address] Marco A Hidalgo Anion gap [Moles/Vol] 10.5 mmol/L Normal [facility] Comment on above: Performed By: #### T SH, LIPID, CMP #### [facility] [address] [place] [address] Dr. Marco A Hidalgo AST [Catalytic activity/Vol] 16 U/L Normal 15-37 [facility] Comment on above: Performed By: #### T SH, LIPID, CMP #### [facility] [address] [place] [address] Dr. Marco A Hidalgo Bilirubin [Mass/Vol] 0.4 mg/dL Normal 0.2-1.0 [facility] Comment on above: Performed By: #### T SH, LIPID, CMP #### [facility] [address] [place] [address] Dr. Marco A Hidalgo Calcium [Mass/Vol] 8.8 mg/dL Normal 8.5-10.1 [facility] Comment on above: Performed By: #### T SH, LIPID, CMP #### [facility] [address] [place] [address] Dr. Marco A Hidalgo Chloride [Moles/Vol] 103 mmol/L Normal 98-107 [facility] Comment on above: Performed By: #### T SH, LIPID, CMP #### [facility] [address] [place] [address] Dr. Marco A Hidalgo CO2 [Moles/Vol] 31.4 mmol/L Normal 21.0-32.0 [facility] Comment on above: Performed By: #### T SH, LIPID, CMP #### [facility] [address] [place] [address] Dr. Marco A Hidalgo Creatinine [Mass/Vol] 0.83 mg/dL Normal 0.70-1.30 [facility] Comment on above: Performed By: #### T SH, LIPID, CMP #### [facility] [address] [place] [address] Dr. Marco A Hidalgo EGFR-AF FAROESE >60 Normal >=60 [facility] Comment on above: Performed By: #### T SH, LIPID, CMP #### [facility] [address] [place] [address] Dr. Marco A Hidalgo EGFR-NON AF FAROESE >60 Normal >=60 [facility] Comment on above: Performed By: #### T SH, LIPID, CMP #### [facility] [address] [place] [address] Dr. Marco A Hidalgo Globulin (S) [Mass/Vol] 3.6 g/dL Normal [facility] Comment on above: Performed By: #### T SH, LIPID, CMP #### [facility] [address] [place] [address] Dr. Marco A Hidalgo Glucose [Mass/Vol] 111 mg/dL Critically high 74-106 [facility] Comment on above: Performed By: #### T CIRA LIPID, CMP #### [facility] [address] [address] [address] Marco A Hidalgo Potassium [Moles/Vol] 3.9 mmol/L Normal 3.5-5.1 [facility] Comment on above: Performed By: #### T CIRA LIPID, CMP #### [facility] [address] [place] [address] Dr. Marco A Hidalgo Protein [Mass/Vol] 7.7 g/dL Normal 6.4-8.2 [facility] Comment on above: Performed By: #### T CIRA LIPID, CMP #### [facility] [address] [place] [address] Dr. Marco A Hidalgo Sodium [Moles/Vol] 141 mmol/L Normal 136-145 [facility] Comment on above: Performed By: #### T CIRA LIPID, CMP #### [facility] [address] [place] [address] Dr. Marco A Hidalgo Urea nitrogen [Mass/Vol] 7.0 mg/dL Normal 7.0-18.0 [facility] Comment on above: Performed By: #### T CIRA LIPID, CMP #### [facility] [address] [place] [address] Dr. Marco A Hidalgo Urea nitrogen/Creatinine [Mass ratio] 8.4 mg/mg Normal [facility] Comment on above: Performed By: #### T CIRA LIPID, CMP #### [facility] [address] [place] [address] Dr. Marco A Hidalgo TSHon 09-06-2022 TSH 2.730 uIU/mL Normal 0.358-3.[address] [facility] Comment on above: Performed By: #### T CIRA LIPID, CMP #### [facility] [address] [place] [address] Dr. Marco A Hidalgo Vital Signs Date Time Vital Sign Value Performing Clinician Facility 10-31-2023 09:20-0500 Body height 182.88 cm Fernando Saab Other [facility] Other 10-31-2023 09:20-0500 Body mass index (BMI) [Ratio] 26.31 kg/m2 Fernando Scovanner Other [facility] Other 10-31-2023 09:20-0500 Body weight 88 kg Fernando Saab Other [facility] Other 10-31-2023 09:20-0500 Diastolic blood pressure 77 mm[Hg] Fernando Scovanner Other [facility] Other 10-31-2023 09:20-0500 Systolic blood pressure 112 mm[Hg] Fernando Garcíaovanner Other [email or web address] Other 09-29-2023 12:00-0500 Diastolic blood pressure 91 mm[Hg] DO Daphne Rumschlag Work Phone: [facility] 09-29-2023 12:00-0500 Heart rate 90 /min DO Daphne Rumschlag Work Phone: [facility] 09-29-2023 12:00-0500 Respiratory rate 18 /min DO Daphne Rumschlag Work Phone: [facility] 09-29-2023 12:00-0500 SaO2% (BldA) [Mass fraction] 98 % DO Daphne Rumschlag Work Phone: [facility] 09-29-2023 12:00-0500 Systolic blood pressure 133 mm[Hg] DO Daphne Rumschlag Work Phone: [facility] 09-29-2023 10:20-0500 Body height 182.88 cm DO Daphne Rumschlag Work Phone: [facility] 09-29-2023 10:20-0500 Body weight 86.18 kg DO Daphne Drake Work Phone: [facility] 08-23-2023 13:20-0500 Body height 182.88 cm Fernando Saab Other [facility] Other 08-23-2023 13:20-0500 Body mass index (BMI) [Ratio] 21.21 kg/m2 Fernando Saab Other [facility] Other 08-23-2023 13:20-0500 Body weight 70.94 kg Fernando Saab Other [facility] Other 08-23-2023 13:20-0500 Diastolic blood pressure 75 mm[Hg] Fernando Saab Other [facility] Other 08-23-2023 13:20-0500 Systolic blood pressure 132 mm[Hg] Fernando Saab Other [facility] Other Encounters Encounter Date Encounter Type Care Provider Facility Start: 11-16-2023 End: 11-16-2023 ambulatory JOSIE VILLELA Not Available Start: 11-16-2023 End: 11-16-2023 Office outpatient visit 15 minutes Josie Villela MD Work Phone: [facility] Comment on above: Other seborrheic huan matitis (Primary Dx); Rash and other nonspecific skin eruption; Venous yoo of lip Start: 11-16-2023 Bamboo flowsheet Josie valera MD Work Phone: [facility] Start: 11-16-2023 Bamboo flowsheet Josie valera MD Work Phone: [facility] Start: 10-31-2023 End: 10-31-2023 ambulatory Fernando Saab Other [facility] Other Start: 10-31-2023 Office outpatient visit 15 minutes Fernando Saab [facility] Start: 10-03-2023 End: 10-03-2023 ambulatory Patrick Morgan Other [facility] Other Start: 10-03-2023 Telephone encounter Patrick NIÑO G G[facility] Start: 09-29-2023 End: 09-29-2023 ambulatory Patrick Morgan Facility:[facility] Start: 09-29-2023 End: 09-29-2023 Admission to same day surgery center DO Daphne Rumschlag Work Phone: [facility] Work Phone: Start: 09-29-2023 End: 09-29-2023 ambulatory DO Daphne Rumschlag Work Phone: [facility] Work Phone: Start: 08-23-2023 End: 08-23-2023 ambulatory Fernando Saab Other [email or web address] Other Start: 08-23-2023 Office outpatient ne w 30 minutes Fernando Saab [facility] G[facility]enter[facility] Start: 09-06-2022 End: 09-07-[address] [...] DERM [address] [place] [address] Josie Villela MD [address] [place] [address] [facility] Start: 03-18-2024 End: 03-18-2024 Patient encounter procedure 03/18/2024 1:00 PM EDT Office Visit [facility] [address] [place] [address] Josie Villela MD [address] [place] [address] [facility] Start: 11-16-2023 End: 11-16-2023 Patient encounter procedure 11/16/2023 2:45 PM EST Office Visit [facility] [address] [place] [address] Josie Villela MD [address] [place], [place] [id number] Arrived [facility] Comment on above: Arrived Start: 09-29-2023 [facility] Start: 06-09-2023 Influenza vaccination Influenza Vacc ine (#1) [facility] Start: 1980 Screening for malign ant neoplasm of colon [facility] Patient Education Colon polyps Hemorrhoids (DC) [facility] Work Phone: Payers Date Payer Category Payer Self-pay [id number] 2022 Medicaid [id number] 2022 Medicaid [employer] [place] [id number] 2022-Present [address] [place] [address] [id number] 1980 Unknown [id number] 1980 Unknown [id number] 1959 Unknown Unknown [id number] Social History Date Type Detail Facility Start: 03-16-2023 End: 11-16-2023 Sex Assigned At [facility] Other Start: 03-16-2023 End: 09-29-2023 Tobacco smoking status NHIS Never smoked tobacco (finding) [facility] Start: 1980 Sex Assigned At Male [facility] Start: 03-16-2023 Tobacco use and exposure Smokeless [...] nonspecific skin eruption Left Ankle - Anterior [place] patches. Resolving at this time. Follow up [...] Visit: 1 year documented in this encounter [facility] Evaluation note 10-31-2023 Note Date & Type Note Facility 10-31-2023 Evaluation note Encounter Date Diagnosis Assessment Notes Oct, Hemorrhoids (ICD-10 - K64.9) Oct, Serrated adenoma of colon (ICD-10 - D12.6) Repeat colonoscopy in 3 yrs Oct, Diarrhea (ICD-10 - R19.7) Oct, GERD (gastroesophag eal reflux disease) (ICD-10 - K21.9) Continue lansoprazole 30 mg twice a day Rto 1 yr [facility] Other Procedure note 09-29-2023 Note Date & Type Note Facility 09-29-2023 Procedure note [facility] Evaluation note 08-23-2023 Note Date & Type [...] fiber and probiotics and increas water intake [facility] [employer] Other Evaluation note Note Date & Type Note Facility Evaluation note No assessment information availa [employer] Work Phone: Evaluation note Note Date & Type Note Facility Evaluation note No Information [facility] [employer] Other Evaluation note Note Date & Type Note Facility Evaluation note Diagnosis Other seborrheic dermatitis- Primary Rash and other nonspecific skin eruption Venous yoo of lip documented in this encounter [facility] History and physical note Note Date & Type Note Facility History and physical note Note Date/Time September 29, 2023 11:27am [facility] [address] [place] [address] Gastroenterology H&P Signed Patient: Jan Ferreira MR#: [id number] : 1980 Acct:[id number] Age/Sex: 42 / M Adm Date: 3 Loc: Room: Type: [facility] Attending Dr: Patrick Morgan MD Copies to: [...] History thyroid disease Surgical History MOHS X2 [facility] Other Hospital Discharge instructions Note Date & [...] years. -Follow up with PCP. -Office number [phone]. [facility] Work Phone: Summary Purpose Family [...] and content) DATE CREATED AUTHOR 10/05/2022 [facility] DATE CREATED AUTHOR AUTHOR'S ORGANIZ ATION 10/14/2023 [facility] DATE CREATED AUTHOR AUTHOR'S ORGANIZ ATION 11/17/2023 [facility] Specialists EPIC REASON FOR VISIT [...] BE BASED ON THE PRIMARY CLINICAL RECORDS. [facility] [employer] [facility]. provides no warranty or guarantee of the accuracy or completeness of information in this document.
[2024-08-12 12:30] LABS: Anion Gap 13.7; BUN Creatinine Ratio 9.8; Calcium 8.8 mg/dL (8.5-10.1); Carbon Dioxide 29.2 mmol/L (21.0-32.0); Chloride 104 mmol/L (98-107); Chol HDL Ratio 4.3; Cholesterol 175 mg/dL (<=200); Estimated GFR (African America >60 (>=60 mL/min/1.73m^2); Estimated GFR (Non-African Ame >60 (>=60 mL/min/1.73m^2); Glucose 127 mg/dL (74-106); HDL Cholesterol 41 mg/dL (40-60); Potassium 3.9 mmol/L (3.5-5.1); Sodium 143 mmol/L (136-145); TSH W/ REFLEX FT4 4.524 uIU/mL (0.358-3.740); Triglycerides 264 mg/dL (<=150); VLDL CHOLESTEROL 52.8 mg/dL
[2024-08-12 13:25] LABS: Free T4 1.04 ng/dL (0.76-1.46)
[2024-08-13 07:12] LABS: HIV Ab/p24 Ag Screen Non Reactive (Non Reactive)
== END 2024-08-12 10:11 | disposition home or self-care (01) ==
PROVIDERS: PCP Nurse Practitioner
DX: E03.9 Hypothyroidism, unspecified (principal); I10 Essential (primary) hypertension; E78.2 Mixed hyperlipidemia; Z11.4 Encounter for screening for human immunodeficiency virus [HIV]
CPT/HCPCS: 36415; 80048; 80061; 84439; 84443; 87389